=== PATIENT | female | born 1955 | race Caucasian/White ===

== ENCOUNTER 2019-04-26 21:08 | Emergency (ER) | payer BC ==
--- NOTE | 2019-04-26 22:07 | EDM.PDOC ---
ED HPI GENERAL MEDICAL PROBLEM - General Chief Complaint: Lower Extremity Injury/Pain Stated Complaint: right knee injury/pain Time Seen by Provider: 04/26/19 21:25 Source of Information: Reports: Patient History Limitations: Reports: No Limitations - History of Present Illness INITIAL COMMENTS - FREE TEXT/NARRATIVE: Patient comes to ER with complaint of right knee pain. Has been having problems on and off with the knee for some time. Tonight while riding a bike she had sudden sharp pain "inside" the knee, and since then the baseline pain has been worse. No numbness/tingling of lower legs. No weakness reported. Knee has not locked up on the patient. No specific injuries to the knee in the past. Unremarkable past medical history. Has not see a doctor much at all over the past 8 years. Bearing weight causes pain. Right Knee Pain Score (Numeric/FACES): 4 - Related Data Allergies Allergy/AdvReac Type Severity Reaction Status Date / Time No Known Allergies Allergy Verified 04/26/19 22:11 Home Meds: Home Meds . [No Known Home Meds] 04/26/19 [History] Past Medical History - Past Health History Medical/Surgical History: Denies Medical/Surgical History Social & Family History - Tobacco Use Smoking Status *Q: Current Every Day Smoker Years of Tobacco use: 40 Packs/Tins Daily: 1 - Recreational Drug Use Recreational Drug Use: No Review of Systems - Review of Systems Review Of Systems: ROS reveals no pertinent complaints other than HPI. ED EXAM, GENERAL - Physical Exam Exam: See Below Exam Limited By: No Limitations General Appearance: Alert, WD/WN, No Apparent Distress Eye Exam: Bilateral Eye: EOMI, PERRL Head: Atraumatic, Normocephalic Neck: Supple, Non-Tender Respiratory/Chest: No Respiratory Distress Back Exam: No: Muscle Spasm Extremities: No Pedal Edema, Normal Capillary Refill, Other (Exam of right knee shows tenderness with palpation over the medial joint line, lateral joint line, and patellar border. Anterior drawer test causes pain but no laxity noted. Patient refused to have varus/valgus tested. No swelling/redness noted. Able to passively flex and extend joint. Nontender above and below knee. ) Neurological: Alert, Oriented, Normal Cognition, No Motor/Sensory Deficits Psychiatric: Normal Affect, Normal Mood Skin Exam: Warm, Dry, Intact, Normal Color Course - Vital Signs Last Recorded V/S: Last Vital Signs Temp 36.6 C 04/26/19 21:10 Pulse 92 04/26/19 21:10 Resp 18 04/26/19 21:10 BP 116/67 04/26/19 21:10 Pulse Ox 98 04/26/19 21:10 - Orders/Labs/Meds Meds: Medications Discontinued Medications Generic Name Dose Route Start Last Admin Trade Name Brad PRN Reason Stop Dose Admin Tramadol HCl 50 mg 04/26/19 22:06 04/26/19 22:11 Ultram PO 04/26/19 22:07 50 mg ONETIME ONE Administration - Re-Assessments/Exams Free Text/Narrative Re-Assessment/Exam: 04/26/19 22:32 Given that the pain complaint has been progressive over a long period of time, and that there was no acute injury that would need to have a fracture considered , it was felt that the best imaging modality would be for the patient to have an MRI on Tuesday. This will allow for better soft tissue/meniscal evaluation as well as gauging degenerative changes. Single Tramadol PO given for pain. Work slip given through next Tuesday. Patient to follow up next week at clinic here or with Ortho depending on MRI results. Activity as tolerated over the weekend. She declined prescription pain meds. Departure - Departure Time of Disposition: 22:05 Disposition: Home, Self-Care 01 Condition: Good Clinical Impression: Right knee pain Qualifiers: Chronicity: unspecified Qualified Code(s): M25.561 - Pain in right knee - Discharge Information *PRESCRIPTION DRUG MONITORING PROGRAM REVIEWED*: Not Applicable *COPY OF PRESCRIPTION DRUG MONITORING REPORT IN PATIENT SUSAN: Not Applicable Instructions: Knee Pain, Adult Forms: ED Department Discharge, ED Return to Work/School Form Additional Instructions: See if you can be scheduled for an MRI when the truck is here Tuesday. Follow up at clinic Tuesday or Tuesday for recheck and further work restriction as needed. Gentle activity until your appointment.
[2019-04-26] MEDS: traMADol 50 MG Tab PO ONE (22:11)
== END 2019-04-26 22:30 | disposition home or self-care (01) ==
LOC: LL.ED 21:08
DX: M25.561 Pain in right knee (principal); F17.210 Nicotine dependence, cigarettes, uncomplicated
CPT/HCPCS: 99283; A9270-GY